=== PATIENT | male | born 1965 | race Caucasian/White ===

== ENCOUNTER 2016-10-24 14:32 | Inpatient (IN) | payer BC, OTHER ==
[~2016-10-24] VITALS: Ht 188 cm; Wt 95.3 kg
[2016-10-24] MEDS ORDERED: IV NORMAL SALINE 1000 ML BAG IV ONE (15:15)
[2016-10-24] MEDS ORDERED: HYDROMORPHONE 1 MG/1 ML DISP.SYRIN IV ONE ×3 (15:15→16:15)
[2016-10-24] MEDS ORDERED: ONDANSETRON 4 MG/2 ML VIAL IV ONE (15:15)
[2016-10-24] MEDS ORDERED: VANCOMYCIN IV 1,000 MG in IV DEXTROSE 5% 250 ML IV ONE (15:15)
[2016-10-24] MEDS ORDERED: VANCOMYCIN IV 200 ML ONE (15:35)
[2016-10-24] MEDS ORDERED: ONDANSETRON 4 MG/2 ML VIAL ONE (15:36)
[2016-10-24] MEDS ORDERED: HYDROMORPHONE 1 MG/1 ML DISP.SYRIN ONE (15:36)
[2016-10-24 15:39] LABS: CREATININE 1.3 mg/dL (0.6-1.3); POTASSIUM 4.1 mmol/L (3.5-5.1)
[2016-10-24 15:40] LABS: BASOPHILS % (AUTO) 0.4 % (0.0-2.0); EOSINOPHILS # (AUTO) 0.1 K/uL (0.0-0.7); EOSINOPHILS % (AUTO) 1.4 % (0.0-7.0); HEMATOCRIT 35.4 % (40-50); HEMOGLOBIN 11.5 G/DL (14.0-18.0); LYMPHOCYTES # (AUTO) 1.6 K/UL (0.8-4.8); LYMPHOCYTES % (AUTO) 15.7 % (20.5-51.5); MEAN CORPUSCULAR HEMOGLOBIN 25.3 UUG (27.0-31.0); MEAN CORPUSCULAR HGB CONC 33 g/dL (32.0-37.0); MEAN CORPUSCULAR VOLUME 77.6 FL (82.0-92.0); MONOCYTES # (AUTO) 0.6 K/UL (0.1-1.30); MONOCYTES % (AUTO) 5.5 % (0.0-11.0); NEUTROPHILS # (AUTO) 7.9 K/UL (1.8-8.9); PLATELET COUNT (AUTO) 422 K/UL (150-450); RED BLOOD CELL COUNT(AUTO) 4.57 MIL/UL (4.7-6.1); WHITE BLOOD COUNT (AUTO) 10.2 K/UL (4.0-11.2)
--- NOTE | 2016-10-24 15:42 | NUR ---
Code Sepsis activated per protocol.
[2016-10-24 15:55] LABS: BILIRUBIN,DIRECT 0.1 mg/dL (0.0-0.2); BILIRUBIN,TOTAL 0.3 mg/dL (0.2-1.0); TOTAL PROTEIN, SERUM 8.1 g/dL (6.4-8.2)
--- NOTE | 2016-10-24 16:20 | NUR ---
Pt to CT, NAD noted at this time.
[2016-10-24] MEDS ORDERED: HYDROMORPHONE 2 MG/1 ML DISP.SYRIN ONE (16:29)
--- NOTE | 2016-10-24 16:54 | NUR ---
Pt back from CT, NAD noted at this time, pt talking on cellphone, appears comfortable.
--- NOTE | 2016-10-24 17:09 | NUR ---
Pt walked out of ER, states he is going to smoke. Dr Tong notified.
[2016-10-24] MEDS ORDERED: CLINDAMYCIN PHOSPHATE IV 600 MG in IV DEXTROSE 5% 100 ML IV ONE (18:30)
--- NOTE | 2016-10-24 18:30 | NUR ---
Pt resting in [facility], appears comfortable with no s/s of distress noted. Per Dr. Tong she spoke with Dr. River, pt to be admitted to m/s if accepted by ortho and she has placed a call to Dr. Pizarro.
--- NOTE | 2016-10-24 19:33 | NUR ---
2ND CALL TO DR. UP EXCHANGE, ASSOCIATE SOFTWARE ENGINEER TO HAVE DOCTOR PAGED...
--- NOTE | 2016-10-24 20:34 | NUR ---
Pt. admitted to med surg , under care of Dr. Ledezma, Belongs List completed, pt is alert, oriented x 4, no resp distress noted or reported upon transfer assessment..
[2016-10-24 20:45] VITALS: BP 146/92
--- NOTE | 2016-10-24 21:00 | NUR ---
pt received from ED accompanied by Ed staff and mother via wheelchair. Per report pt has diagnosis of cellulitis of upper and lower extremities, also pt has foreign object in left upper arm, per report foreign object is a needle, pt does not know what the foreign object is. upon face to face pt is AOx4, ambulatory and continent of bowel and bladder. vital signs wnl. Pt has multiple small open wounds, bumps, and swelling to both arms and left leg. Report heroin abuse daily for the 6 weeks via IV and methadone PO 120mg for the last 2 days. Reports only history of depression. Safety measures maintained. called for orders.
[2016-10-24] MEDS ORDERED: ZOLPIDEM 5 MG TABLET PO PRN (22:15)
[2016-10-24] MEDS ORDERED: ONDANSETRON 4 MG/2 ML VIAL IV PRN (22:15)
[2016-10-24] MEDS ORDERED: MAGNESIUM HYDROXIDE 30 ML LIQUID UDC PO PRN (22:15)
[2016-10-24] MEDS ORDERED: ACETAMINOPHEN 325 MG TABLET PO PRN (22:15)
[2016-10-24] MEDS ORDERED: HYDROMORPHONE 1 MG/1 ML DISP.SYRIN IV PRN (22:15)
[2016-10-24] MEDS ORDERED: HYDROCODONE/APAP 5-325MG TABLET PO PRN (22:15)
[2016-10-24] MEDS: IV NS 1000 ML 1,000 ML IV PRN (22:28)
[2016-10-25] MEDS ORDERED: CLINDAMYCIN PHOSPHATE 900 MG/6 ML VIAL ONE (03:17)
[2016-10-25 04:00] VITALS: BP 119/74
[2016-10-25] MEDS ORDERED: HYDROCODONE/APAP 5-325MG TABLET ONE (05:27)
[2016-10-25] MEDS: CLINDAMYCIN PHOSPHATE IV 900 MG in IV DEXTROSE 5% 100 ML IV SCH ×2 (05:53→13:17)
--- NOTE | 2016-10-25 06:36 | NUR ---
PT SLEPT INTERMITTENTLY THROUGH OUT THE NIGHT. COMPLIANT WITH TREATMENT AND PLAN. PT TOLERATING IV FLUIDS IN LEFT UPPER ARM NS AT 100ML/HR. NO ACUTE DISTRESS NOTED. SAFETY MEASURES MAINTAINED.
[2016-10-25] MEDS ORDERED: PANTOPRAZOLE SODIUM 40 MG TABLET.DR PO SCH (08:00)
[2016-10-25] MEDS ORDERED: ACIDOPHILUS/BULGARICUS CHEW TAB PO SCH (09:00)
[2016-10-25] MEDS ORDERED: NICOTINE 21 MG/24HR PATCH TD SCH (09:00)
[2016-10-25] MEDS: IV NS 1000 ML 1,000 ML IV PRN (09:30)
[2016-10-25] MEDS ORDERED: VANCOMYCIN IV 1,500 MG in IV DEXTROSE 5% 500 ML IV SCH (10:00)
[2016-10-25 11:31] VITALS: BP 119/68
[2016-10-25] MEDS ORDERED: DOCUSATE SODIUM 100 MG CAPSULE PO SCH (12:30)
--- NOTE | 2016-10-25 15:09 | NUR ---
CLINICAL PHARMACY NOTE: VANCOMYCIN PHARMACY TO DOSE Subjective: To start vancomycin in this 51 y/o gentleman for indication of cellulitis Objective: height: 188cm weight: 95 kg BUN 13 Scr 1.3 wbc 10.2 temp 97.3 1gm vancomycin given @1530 on 10/24 in ER Assessment/Plan Will start regimen of 1500 q14hr for expected trough of 15.13. First dose due today at 1000. Will order trough before 4th scheduled dose (not ordered yet). Will check renal function and adjust if were to be unstable. Will continue to monitor
[2016-10-25 15:50] VITALS: BP 122/78
--- NOTE | 2016-10-25 16:09 | NUR ---
Transfer: Spoke with Dr. River who informed this deposition reporter that the patient will be transferred to an in-network facility per the Sl[facility]. Left a message with the case loader operator [Arlette [phone]]. Faxed all clinical documents. Left the nurses station number in the event the transfer takes place after hours. CM/SW to follow up.
[2016-10-25] MEDS ORDERED: PIPERACILLIN/TAZOBACTAM/D5W 50 ML IV SCH (18:00)
--- NOTE | 2016-10-25 18:10 | NUR ---
THIS RECORDER RECEIVED A CALL FROM SINDY VSAQUEZ FROM [facility] STATING THAT PATIENT ANA SALOMN HAS A BED AT [facility] ROOM 42[address] BED 1, THE ACCEPTING PHYSICIAN IS DR KWON AND SHE WILL ARRANGE AMBULANCE SPIN TABLE OPERATOR FOR 8PM THIS EVENING 10/25/16. PATIENT ANA SALMON AND HIS MOTHER DR BLANCHARD VIKY INFORMED OF TRANSFER AND ARE IN AGREEMENT TO BE TRANSFERRED. DR AGUIAR INFORMED OF ALL OF THE ABOVE.
--- NOTE | 2016-10-25 19:50 | NUR ---
RECEIVED PATIENT SITTING ON THE BED. A/O X'S 4. NO ACUTE DISTRESS NOTED. PATIENT IS AWARE THAT HE IS BEING D/C'S TO [facility] IN [place]. SAFETY INITIATED. CALL LIGHT WITHIN REACH. WILL CONTINUE TO MONITOR.
[2016-10-25 20:00] VITALS: BP 146/77
--- NOTE | 2016-10-25 20:15 | NUR ---
PATIENT WAS PICKED UP BY [facility]; REPORT GIVEN TO LISANDRO TO TRANSIT TO [facility]. PATIENT LEFT WITH ALL BELONGINGS.
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
== END 2016-10-25 20:15 | disposition short-term general hospital (02) | DRG 603 ==
LOC: ER 14:32 → MED 20:30
PROVIDERS: ADMIT Internal Medicine; ATTEND Internal Medicine
DX: L03.114 Cellulitis of left upper limb (principal); L02.416 Cutaneous abscess of left lower limb; L03.116 Cellulitis of left lower limb; L03.115 Cellulitis of right lower limb; F11.20 Opioid dependence, uncomplicated; L97.229 Non-pressure chronic ulcer of left calf with unspecified severity; L97.211 Non-pressure chronic ulcer of right calf limited to breakdown of skin; F17.213 Nicotine dependence, cigarettes, with withdrawal; E44.0 Moderate protein-calorie malnutrition; D68.9 Coagulation defect, unspecified; J98.11 Atelectasis; S51.842S Puncture wound with foreign body of left forearm, sequela; L03.113 Cellulitis of right upper limb; S81.832S Puncture wound without foreign body, left lower leg, sequela; S81.831S Puncture wound without foreign body, right lower leg, sequela; X78.8XXS Intentional self-harm by other sharp object, sequela; Z81.3 Family history of other psychoactive substance abuse and dependence; Z82.49 Family history of ischemic heart disease and other diseases of the circulatory system; Z80.3 Family history of malignant neoplasm of breast; Z80.1 Family history of malignant neoplasm of trachea, bronchus and lung; K59.00 Constipation, unspecified; F14.10 Cocaine abuse, uncomplicated; Z68.27 Body mass index [BMI] 27.0-27.9, adult; D50.9 Iron deficiency anemia, unspecified; Z86.59 Personal history of other mental and behavioral disorders; L90.5 Scar conditions and fibrosis of skin; F13.90 Sedative, hypnotic, or anxiolytic use, unspecified, uncomplicated
CPT/HCPCS: 36415; 71010; 73200; 73700; 83605; 85025; 85730; 87040; 87070; 87077; 87086; 97161; A4663; J1170; J2405; J2543; J3370; J3490; J7030; J7060

== ENCOUNTER 2020-06-06 16:46 | Emergency (ER) | payer BC, OTHER ==
[~2020-06-06] VITALS: Ht 185.4 cm; Wt 99.8 kg
--- NOTE | 2020-06-06 17:00 | NUR ---
at bedside for assessment
[2020-06-06] MEDS ORDERED: HYDR-3980 PO (17:16)
[2020-06-06] MEDS ORDERED: SULF-10 PO (17:18)
--- NOTE | 2020-06-06 17:30 | NUR ---
Abscess drained on back of patient neck by , Bordered gauze dressing applied, patient instructed to follow up in 2 days for wound check, Patient discharged to home in stable condition. Written and verbal after care instructions given. No signs of acute distress noted, took all belongings, noted ambulating to private vehicle driven by mother. Patient verbalizes understanding of instructions. Stressed follow up or return to ER for worsening s/s.
[2020-06-06 17:33] VITALS: BP 117/74
== END 2020-06-06 17:30 | disposition home or self-care (01) ==
LOC: ER 16:46
DX: L02.11 Cutaneous abscess of neck (principal)
CPT/HCPCS: 10060; 99283; J3490; A4663

== ENCOUNTER 2020-06-09 17:18 | Emergency (ER) | payer BC ==
[~2020-06-09] VITALS: Ht 185.4 cm; Wt 99.8 kg
[~2020-06-09 17:18] MED LIST: HYDR-3980 PO; SULF-10 PO
--- NOTE | 2020-06-09 17:55 | NUR ---
Dr Nicholas at bedside for MSE.
[2020-06-09] MEDS ORDERED: SULFAMETH/TRIMETH 800/160 MG TABLET PO ONE (18:00)
[2020-06-09] MEDS ORDERED: CEphaleXIN 500 MG CAPSULE PO ONE (18:00)
[2020-06-09] MEDS ORDERED: SULF1TAB48 PO (18:06)
[2020-06-09] MEDS ORDERED: CEPH500C2 PO (18:06)
[2020-06-09] MEDS ORDERED: CEphaleXIN 500 MG CAPSULE ONE (18:16)
[2020-06-09] MEDS ORDERED: SULFAMETH/TRIMETH 800/160 MG TABLET ONE (18:16)
--- NOTE | 2020-06-09 18:20 | NUR ---
Dr Nicholas cleared patient for discharge. RN was instructed to clean wound with betadine, and cover with clean dry dressing. Pt tolerated tx and PO ATb administered in ED. Written and verbal after care instructions given. Patient verbalizes understanding of instructions. Stressed follow up or return to ER in 3 days for wound re-check or for worsening s/s. Ambulated out of ED in steady gait.
[2020-06-09 19:06] VITALS: BP 125/80
== END 2020-06-09 18:25 | disposition home or self-care (01) ==
LOC: ER 17:18
DX: Z48.817 Encounter for surgical aftercare following surgery on the skin and subcutaneous tissue (principal); L02.11 Cutaneous abscess of neck; L03.221 Cellulitis of neck; F14.10 Cocaine abuse, uncomplicated; F11.10 Opioid abuse, uncomplicated
CPT/HCPCS: A4663